=== PATIENT | male | born 1970 | race Two or more races ===

== ENCOUNTER 2023-11-18 12:10 | Emergency (ER) | payer OTHER ==
[~2023-11-18] VITALS: Ht 175.3 cm; Wt 95.0 kg
[2023-11-18 13:19] VITALS: BP 168/89; PULSE 66; RESP 18; TEMP 98.5
[2023-11-18] MEDS ORDERED: SODIUM CHLORIDE 0.9% 1,000 ML IV ONE (14:30)
== END 2023-11-18 15:15 | disposition left against medical advice (07) ==
LOC: EMS 12:10
DX: R55 Syncope and collapse (principal); I10 Essential (primary) hypertension
CPT/HCPCS: 93005; 99283